=== PATIENT | male | born 1980 | race Caucasian/White ===

== ENCOUNTER 2020-05-07 08:02 | Emergency (ER) | payer OTHER ==
[2020-05-07 08:09] VITALS: BP 160/100; PULSE 71; RESP 18; TEMP 97.9
[2020-05-07] MEDS ORDERED: KETOROLAC 30 MG/ML 1 ML VIAL IM STA (08:18)
--- NOTE | 2020-05-07 08:34 | XR ---
EXAMINATION TYPE: XR knee complete LT DATE OF EXAM: 05/07/2020 CLINICAL HISTORY: pain TECHNIQUE: Three views of the left knee are obtained. COMPARISON: None. FINDINGS: There is no acute fracture/dislocation. Suprapatellar joint effusion. The tri-compartment joint spaces appear within normal limits. The overlying soft tissue appears unremarkable. IMPRESSION: There is no acute fracture or dislocation ICD 10 NO FRACTURE, INITIAL EVALUATION
--- NOTE | 2020-05-07 08:38 | ED ---
Lower Extremity Injury HPI - General Chief Complaint: Extremity Injury, Lower Stated Complaint: lt knee pain Time Seen by Provider: 05/07/20 08:10 Source: patient Mode of arrival: ambulatory Limitations: no limitations - History of Present Illness Initial Comments: 39yo male presenting today for cc of left knee pain. Patient tripped over dog around 9PM last night. He states he twisted knee wrong, pain with ROM since. Weight bearing and walking around since injury. Denies numbness, tingling, loss of sensation. Denies significant swelling or bruising. Patient appears well on arrival, no additional complaints-or areas of injury. - Related Data Home Medications Medication Instructions Recorded Confirmed HYDROcodone/APAP 10-325MG [[place] 1 tab PO DIRECTED 12/15/15 12/15/15 10-325] Allergies Allergy/AdvReac Type Severity Reaction Status Date / Time Penicillins AdvReac Rash/Hives Verified 05/07/20 08:09 Review of Systems ROS Statement: Those systems with pertinent positive or pertinent negative responses have been documented in the HPI. ROS Other: All systems not noted in ROS Statement are negative. Past Medical History Past Medical History: No Reported History Additional Past Medical History / Comment(s): right shoulder bone spur History of Any Multi-Drug Resistant Organisms: None Reported Past Surgical History: Orthopedic Surgery Additional Past Surgical History / Comment(s): left knee Past Psychological History: No Psychological Hx Reported Smoking Status: Current every day smoker Past Alcohol Use History: None Reported Past Drug Use History: None Reported General Exam - General Exam Comments Initial Comments: General: The patient is awake and alert, in no distress Eye: Pupils are equal, round and reactive to light, extra-ocular movements are intact. No nystagmus. There is normal conjunctiva bilaterally. No signs of icterus. Cardiovascular: There is a regular rate and rhythm. No murmur, rub or gallop is appreciated. Musculoskeletal: Normal ROM, of the knees, ankles, hips b/l, pain with ROM at the left knee. NO laxity noted. Mild crepitus palpated. Strength 5/5 of chago LE b/l. Sensation intact of the LE b/l. DP pulses equal bilaterally 2+ Neurological: A&O x 3. CN II-XII intact grossly, There are no obvious motor or sensory deficits. Coordination appears grossly intact. Speech is normal. Skin: Skin is warm and dry and no rashes or lesions are noted. Psychiatric: Cooperative, appropriate mood & affect, normal judgment. Limitations: no limitations Course Vital Signs 05/07/20 08:04 Temperature 97.9 F Pulse Rate 71 Respiratory 18 Rate Blood Pressure 160/100 O2 Sat by Pulse 99 Oximetry Medical Decision Making - Medical Decision Making Patient able to weight-bear neurovascularly intactand swelling or ecchymosis noted. X-ray negative for acute osseous processes cannot rule out ligamentous injury however no laxity noted. Patient's previous meniscus injury of the left knee and establish orthopedic care patient was instructed to follow-up with outreach specialist if symptoms are persistent otherwise rest knee apply ice and take ibuprofen Tylenol as needed for pain management. Return parameters were discussed patient is agreeable to this care plan discharge at this time. Dr. Angeles agreeable to care plan. Disposition Clinical Impression: Left knee pain, Strain of left knee, Elevated blood pressure reading Disposition: HOME SELF-CARE Condition: Good Instructions (If sedation given, give patient instructions): Knee Sprain (ED) Additional Instructions: Please use medication as discussed. Please follow-up with family doctor in the next 2 days, if symptoms persistent please seek orthopedic evaluation. Please return to emergency room if the symptoms increase or worsen or for any other concerns. Is patient prescribed a controlled substance at d/c from ED?: No Referrals: Karthik Alas DO [Primary Care Provider] - 1-2 days Navarro Schwartz DO [Doctor of Osteopathic Medicine] - 1-2 days Time of Disposition: 08:38
== END 2020-05-07 08:56 | disposition home or self-care (01) ==
LOC: EC 08:02
DX: S86.912A Strain of unspecified muscle(s) and tendon(s) at lower leg level, left leg, initial encounter (principal); R03.0 Elevated blood-pressure reading, without diagnosis of hypertension; F17.200 Nicotine dependence, unspecified, uncomplicated; Z79.891 Long term (current) use of opiate analgesic; Z88.0 Allergy status to penicillin; W01.0XXA Fall on same level from slipping, tripping and stumbling without subsequent striking against object, initial encounter; X50.1XXA Overexertion from prolonged static or awkward postures, initial encounter
CPT/HCPCS: 73562; 96372; 99283; J1885

== ENCOUNTER 2020-09-15 07:38 | Emergency (ER) | payer OTHER ==
[2020-09-15 07:43] VITALS: BP 163/102; PULSE 90; RESP 18; TEMP 98
--- NOTE | 2020-09-15 07:59 | ED ---
General Adult HPI - General Chief complaint: Extremity Injury, Upper Stated complaint: L Hand Injury Time Seen by Provider: 09/15/20 07:46 Source: patient, RN notes reviewed, old records reviewed Mode of arrival: ambulatory Limitations: no limitations - History of Present Illness Initial comments: 39 male with left thumb pain after washing windows. Patient had beeninverting his hand to wash the underside of windows. He began feeling pain at the base of his thumb. He denies any specific trauma to the hand. Denies fever or chills. No numbness or tingling. No other complaints. - Related Data Home Medications Medication Instructions Recorded Confirmed HYDROcodone/APAP 10-325MG [[place] 1 tab PO DIRECTED 12/15/15 12/15/15 10-325] Allergies Allergy/AdvReac Type Severity Reaction Status Date / Time Penicillins AdvReac Rash/Hives Verified 09/15/20 07:43 Review of Systems ROS Statement: Those systems with pertinent positive or pertinent negative responses have been documented in the HPI. ROS Other: All systems not noted in ROS Statement are negative. Past Medical History Past Medical History: No Reported History Additional Past Medical History / Comment(s): right shoulder bone spur History of Any Multi-Drug Resistant Organisms: None Reported Past Surgical History: Orthopedic Surgery Additional Past Surgical History / Comment(s): left knee Past Psychological History: No Psychological Hx Reported Smoking Status: Current every day smoker Past Alcohol Use History: None Reported Past Drug Use History: None Reported General Exam Limitations: no limitations General appearance: alert, in no apparent distress Head exam: Present: atraumatic, normocephalic Eye exam: Present: normal appearance, PERRL ENT exam: Present: normal exam Neck exam: Present: normal inspection. Absent: tenderness, meningismus Respiratory exam: Present: normal lung sounds bilaterally. Absent: respiratory distress, wheezes Cardiovascular Exam: Present: regular rate, normal rhythm GI/Abdominal exam: Present: soft. Absent: distended, tenderness, guarding Extremities exam: Present: other (eft hand and wrist: Patient has normal range of motion throughout joints. No redness or erythema, no induration. Normal cap refill, radial pulses 2+. He has a previous well-healed scar on the thenar eminence. There is no muscle atrophy. 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 No trauma. No signs of infection. Patient is placed in a cock up wrist splint for comfort. He is given hand surgery follow-up if his symptoms persist. He will return with worsening or changing symptoms. Disposition Clinical Impression: Hand sprain Disposition: HOME SELF-CARE Instructions (If sedation given, give patient instructions): Hand Sprain (ED) Is patient prescribed a controlled substance at d/c from ED?: No Referrals: Karthik Alas DO [Primary Care Provider] - 1-2 days Roberto Sanchez DO [Medical Doctor] - 1-2 days Time of Disposition: 07:59
== END 2020-09-15 08:07 | disposition home or self-care (01) ==
LOC: EC 07:38
DX: S63.92XA Sprain of unspecified part of left wrist and hand, initial encounter (principal); F17.200 Nicotine dependence, unspecified, uncomplicated; Z88.0 Allergy status to penicillin; X50.1XXA Overexertion from prolonged static or awkward postures, initial encounter; Y93.E9 Activity, other interior property and clothing maintenance
CPT/HCPCS: 29125; 99283